=== PATIENT | female | born 1940 | race Caucasian/White ===

== ENCOUNTER → 2018-08-11 08:56 | Outpatient (CLI) | payer MEDICARE, OTHER, SELFPAY ==
--- NOTE | 2018-08-11 | DI.MG.S_ITS ---
BILATERAL DIGITAL SCREENING MAMMOGRAM 3D/2D WITH CAD: 08/11/2018 CLINICAL: Routine screening. Comparison is made to exams dated: 01/18/2015 mammogram - [facility], 09/05/2013 mammogram, and 11/10/2011 mammogram - [facility]. There are scattered fibroglandular elements in both breasts. Current study was also evaluated with a Computer Aided Detection (CAD) system. There is a mole marker on the right breast. No significant masses, calcifications, or other findings are seen in either breast. There has been no significant interval change. IMPRESSION: NEGATIVE There is no mammographic evidence of malignancy. A 1 year screening mammogram is recommended. This exam was interpreted at Station ID: [id number]. NOTE: For mammograms, a report in lay terms will be sent to the patient. Approximately 15% of breast malignancies will not be visualized mammographically. In the management of a palpable breast mass, a negative mammogram must not discourage biopsy of a clinically suspicious lesion. Electronically Signed By: Sanjiv delarosa/alexa:08/11/2018 12:27:19 letter sent: Normal Exam ACR BI-RADS Category 1: Negative [id number]
== END ==
PROVIDERS: PCP Physician Assistant; Visit Provider Physician Assistant
DX: Z12.31 Encounter for screening mammogram for malignant neoplasm of breast (principal)
CPT/HCPCS: 77063; 77067

== ENCOUNTER → 2021-11-11 10:48 | Outpatient (CLI) | payer MEDICARE, OTHER, SELFPAY ==
--- NOTE | 2021-11-11 | DI.MRI.S_ITS ---
PROCEDURE: MR LUMBAR SPINE WO CON INDICATIONS: Sciatica, right side TECHNIQUE: Noncontrast sagittal T1 spin echo and T2 fast echo, sagittal STIR, and T2 fast spin echo through the lumbar spine. In cases with scoliosis, additional coronal T2 fast spin echo may be performed. COMPARISON: None. FINDINGS: Image quality: Excellent. Alignment and Curvature: Convex left thoracolumbar scoliosis present. Transitional anatomy present. There is partial sacralization of the L5 vertebral body, and hypoplastic ribs associated with T12. Bone Marrow: Marrow is of normal overall signal. No acute vertebral body compression fractures. Spinal Cord: Conus medullaris terminates at the L1 level. Visualized cord demonstrates normal signal and size. Paraspinous Soft Tissues: No paravertebral masses. T12-L1: Normal appearance. L1-L2: Disc space narrowing and circumferential disc bulge with hypertrophic facet joints results in mild central stenosis. Mild bilateral foraminal stenosis. L2-L3: Disc space narrowing with circumferential disc bulge and hypertrophic facet joints results in moderate central stenosis. Severe right and moderate left foraminal stenosis L3-L4: Disc space narrowing and circumferential disc bulge combines with hypertrophic facet joints and ligamentum flavum laxity results in moderate central stenosis. Severe right and mild left foraminal stenosis L4-L5: Disc space narrowing with circumferential disc bulge and hypertrophic facet joints results in moderate central stenosis. Severe left and mild right foraminal stenosis L5-S1: Disc space narrowing with circumferential disc bulge present. No central stenosis. No foraminal stenosis IMPRESSION: 1. Multilevel degenerative disc disease and arthropathy results in varying degrees of central and foraminal stenosis including moderate central stenosis at L2-3 , L3-4 and L4-5 2. Transitional anatomy. There is assumed partial sacralization of the L5 vertebral body and hypoplastic ribs associated with T12 Approved by: Dallin Thornton M.D. on 11/11/2021 at 16:35
--- NOTE | 2021-11-11 | DI.RAD.S_ITS ---
PROCEDURE: XR HAND RT MIN 3V INDICATIONS: right thumb pain TECHNIQUE: 3 views of the hand(s) acquired. COMPARISON: None. FINDINGS: Bones: Severe degenerative changes are present throughout the interphalangeal joints, 1st CMC joint, and triscaphe joint of the right hand. Large osteophytes, endplate sclerosis, and subchondral cystic changes are present throughout. A hooked osteophyte is present at the distal aspect of the right 2nd metacarpal. Subchondral cystic changes are also present at the distal ulna. No acute fracture or dislocation. Periarticular erosions are noted at the distal 1st metacarpal Soft tissues: No suspicious soft tissue calcifications. IMPRESSION: 1. No acute fracture or dislocation. If pain persists, followup imaging in 5-7 days is recommended to exclude occult fracture. 2. Severe osteoarthritis as above. Some bony erosions may represent subchondral cystic changes; however erosive arthritis could also be considered in the differential. Dictated by: Prabha Schilling M.D. on 11/11/2021 at 13:33 Approved by: Prabha Schilling M.D. on 11/11/2021 at 13:35
== END ==
PROVIDERS: PCP Student in an Organized Health Care Education/Training Program; Referring Provider Student in an Organized Health Care Education/Training Program; Visit Provider Student in an Organized Health Care Education/Training Program
DX: M47.26 Other spondylosis with radiculopathy, lumbar region (principal); M51.16 Intervertebral disc disorders with radiculopathy, lumbar region; M48.061 Spinal stenosis, lumbar region without neurogenic claudication; M19.041 Primary osteoarthritis, right hand; M18.11 Unilateral primary osteoarthritis of first carpometacarpal joint, right hand; M79.644 Pain in right finger(s); Z13.820 Encounter for screening for osteoporosis; Z78.0 Asymptomatic menopausal state; Z90.710 Acquired absence of both cervix and uterus; Z92.23 Personal history of estrogen therapy
CPT/HCPCS: 72148; 73130; 77080

== ENCOUNTER 2023-09-09 16:15 | Emergency (ER) | payer MEDICARE, SELFPAY ==
[2023-09-09] VITALS (13 sets, daily range): BP systolic 161–221; BP diastolic 76–100; PULSE 67–78; RESP 18–20; TEMP 36.8; O2SAT 94–97; BMI 33.8
--- NOTE | 2023-09-09 16:34 | DI.RAD.S_ITS ---
PROCEDURE: XR CHEST 1V INDICATIONS: Shortness of breath TECHNIQUE: One view of the chest was acquired. COMPARISON: None. FINDINGS: Surgical changes and devices: None. Lungs and pleura: Lungs are clear. No pleural effusions or pneumothorax. Mediastinum: Mediastinal contours appear normal. Heart size is normal. Bones and chest wall: No suspicious bony lesions. Overlying soft tissues appear unremarkable. IMPRESSION: No acute cardiopulmonary abnormality is seen. Dictated by: Wm Nava M.D. on 09/09/2023 at 17:06 Approved by: Wm Nava M.D. on 09/09/2023 at 17:06
[2023-09-09 17:12] LABS: Lactate (Lactic Acid) 1.6 mmol/L (0.7-2.1)
[2023-09-09 17:13] LABS: Alanine Aminotransferase 47 IU/L (<35); Albumin 4.5 g/dL (3.5-5.0); Albumin Globulin Ratio 1.6 (1.0-2.8); Alkaline Phosphatase 49 U/L (38-126); Aspartate Aminotransferase 39 IU/L (14-36); BUN Creatinine Ratio 31.3 (6-22); Bilirubin Total 0.5 mg/dL (0.2-1.3); Blood Urea Nitrogen 21 mg/dL (7-17); Calcium 10.4 mg/dL (8.4-10.2); Carbon Dioxide 25 mmol/L (22-32); Chloride 109 mmol/L (98-107); Creatine Kinase 102 U/L (30-135); Estimated Glomerular Filt Rate > 60 mL/min (>60); Globulin 2.8 g/dL (1.7-4.1); Glucose 118 mg/dL (80-110); HEMOLYSIS 19 (0-50); Potassium 4.6 mmol/L (3.4-5.1); Sodium 140 mmol/L (137-145); Total Protein 7.3 g/dL (6.3-8.2)
[2023-09-09 17:14] LABS: Add Manual Diff / Slide Review NO; Basophils Absolute Auto 0 /uL (0-100); Basophils Percent Auto 0.8 % (0-2); Eosinophils Absolute Auto 100 /uL (0-450); Eosinophils Percent Auto 1.1 % (2-4); Hematocrit 36.8 % (36-46); Lymphocytes Absolute Auto 1000 /uL (1100-4500); Lymphocytes Percent Auto 19.2 % (25-40); Mean Corpuscular HGB Conc 32.7 % (30-36); Mean Corpuscular Hemoglobin 31.1 PG (26-34); Mean Corpuscular Volume 95.3 fL (80-100); Monocytes Absolute Auto 400 /uL (0-900); Monocytes Percent Auto 7.4 % (3-14); Neutrophils Absolute Auto 3700 /uL (1500-7000); Neutrophils Percent Auto 71.5 % (50-75); Platelet Count 220 X10^3/uL (150-400); Red Blood Cell Count 3.86 X10^6/uL (4.0-5.2); Red Cell Distribution Width 13.9 % (11.6-14.8); White Blood Cell Count 5.2 X10^3/uL (4.5-11.0)
[2023-09-09 17:24] LABS: NT-proBNP (BNP-Adult 18+) 62 pg/mL (<450); Troponin I < 0.012 ng/mL (0.01-0.034)
[2023-09-09 18:43] LABS: Prothrombin Time 10.9 SECONDS (9.4-12.5)
--- NOTE | 2023-09-09 19:42 | ED.EXTPRO ---
HPI - Extremity Problem General Chief complaint: Extremity Problem,Nontraumatic Stated complaint: leg swelling, neck pain, sent by [facility] Time Seen by Provider: 09/09/23 19:42 Source: patient Mode of arrival: Ambulatory History of Present Illness HPI Narrative: 82-year-old female complains of left lateral neck discomfort for the last few days, increasing, worse with movement, some tenderness when she pushes on the area, no fall or blunt trauma recalled, no numbness or tingling to the ipsilateral left upper extremity. No history of abnormal clotting, no left arm swelling. No treatments tried. No history of cervical spine surgeries or injections or other interventions. She also has had 2 weeks' duration of bilateral leg swelling, frequently standing, no leg pain with walking or movement. She has not discontinued any medications, nor has she started any new medications. No history of heart failure, kidney failure, liver failure, nephrotic syndrome, when she was directly asked. She has not tried any medications for this problem, has not sought care for this problem. She denies any recent chest pain, trouble breathing. Related Data Home Medications Medication Instructions Recorded Confirmed atorvastatin 20 mg tablet 20 mg PO DAILY 09/01/18 11/17/22 omeprazole 20 mg capsule,delayed 20 mg PO DAILY 09/01/18 11/17/22 release clobetasol 0.05 % topical ointment 1 applictn topical DAILY 11/09/19 11/17/22 cholecalciferol (vitamin D3) 25 25 mcg PO DAILY 05/08/20 11/17/22 mcg (1,000 unit) capsule multivitamin 1 tab PO DAILY 11/17/22 11/17/22 Previous Rx's Medication Instructions Recorded lorazepam 0.5 mg tablet 0.5 mg PO DAILY PRN anxiety #30 09/26/20 tabs escitalopram oxalate 5 mg tablet 5 mg PO DAILY #7 tabs 06/22/23 furosemide 20 mg tablet 20 mg PO DAILY leg swelling 7 days 09/09/23 #1 tab methocarbamol 500 mg tablet 500 mg PO TID #20 tabs 09/09/23 Allergies Allergy/AdvReac Type Severity Reaction Status Date / Time codeine [CODEINE] Allergy Unknown vomit Verified 11/17/22 10:17 Sulfa (Sulfonamide Allergy Unknown rash Verified 11/17/22 10:17 Antibiotics) [SULFA (SULFONAMIDE ANTIBIOTICS)] Review of Systems Constitutional Constitutional: Denies weakness Eyes Eyes: Denies change in vision and Denies irritation ENT Ears, Nose, Mouth, and Throat: Denies otalgia and Reports neck pain Cardiovascular Cardiovascular: Denies dyspnea Respiratory Respiratory: Denies cough and Denies dyspnea Gastrointestinal Gastrointestinal: Denies abdominal pain, Denies diarrhea, Denies nausea and Denies vomiting Musculoskeletal Musculoskeletal: Reports neck pain, Denies numbness and Denies tingling Comments: Left lateral posterior neck pain as per HPI, atraumatic, worse with head movements, and is tender to palpation Integumentary/Breasts Skin/Breast: Denies sores Neurologic Neurologic: Denies numbness, Denies tingling and Denies weakness Patient History Social History Smoking Status: Never smoker Smoking Status: Never smoker Substance Use Type: does not use Exam Initial Vital Signs Initial Vital Signs: Vital Signs Temperature 98.2 F 09/09/23 16:20 Pulse Rate 78 09/09/23 16:20 Respiratory Rate 20 09/09/23 16:20 Blood Pressure 190/99 H 09/09/23 16:20 Pulse Oximetry 96 09/09/23 16:20 Oxygen Delivery Method Room Air 09/09/23 16:20 Const General: cooperative [facility] Other: Atraumatic scalp and face, no swelling to the jaw or submandibular space, no tenderness to anterior neck, some tenderness along left posterior scalene musculature, but not along the superior trapezius, no gross deformity, no limited range of motion to the neck, no posterior midline cervical spine tenderness Eyes General: Yes appearance normal, both eyes and all related structures Chest Chest: normal inspection of the chest Resp Effort & Inspection: normal respiratory effort GI Inspection: normal to inspection, non-distended and obesity Palpation: No tender Other: Deferred Back/Spine/Pelvis Back: normal to inspection Neuro Cranial Nerves: CN's II-XI intact bilaterally Speech: speech normal Motor: strength 5/5 throughout Extrem Other: Bilateral lower edema 1+ pitting above ankles both sides, good DP pulses, warm, good cap refill Psych Appearance: grossly normal Course Orders Ordered: Discontinued Medications Furosemide (Furosemide 40 Mg/4 Ml Vial) 20 mg IV NOW ONE Stop: 09/09/23 22:27 Last Admin: 05/09/24 22:34 Dose: 20 mg Documented By: CECI Methocarbamol (Methocarbamol 500 Mg Tablet) 500 mg PO NOW ONE Stop: 09/09/23 21:23 Last Admin: 09/09/23 21:27 Dose: 500 mg Documented By: TOMAS Vital Signs Vital signs: Vital Signs - 8 hr 09/09/23 16:20 09/09/23 19:20 09/09/23 19:20 Temperature 98.2 F Pulse Rate 78 67 Respiratory Rate 20 Blood Pressure 190/99 H 198/95 H Pulse Oximetry 96 97 Oxygen Delivery Method Room Air 09/09/23 19:22 09/09/23 19:30 09/09/23 19:30 Temperature Pulse Rate 72 70 Respiratory Rate Blood Pressure 221/90 H Pulse Oximetry 97 97 Oxygen Delivery Method 09/09/23 20:00 09/09/23 20:30 09/09/23 20:30 Temperature Pulse Rate 71 77 Respiratory Rate Blood Pressure 203/100 H Pulse Oximetry 96 95 Oxygen Delivery Method 09/09/23 21:00 09/09/23 21:01 09/09/23 21:01 Temperature Pulse Rate 71 73 Respiratory Rate Blood Pressure 178/80 H Pulse Oximetry 94 97 Oxygen Delivery Method MDM - Extremity (Nontraumatic) Lab Data 09/09/23 16:55 09/09/23 16:55 Labs: Lab Results 09/09/23 09/09/23 Range/Units 16:55 18:20 WBC 5.2 (4.5-11.0) X10^3/uL RBC 3.86 L (4.0-5.2) X10^6/uL Hgb 12.0 (12.0-16.0) g/dL Hct 36.8 (36-46) % MCV 95.3 (80-100) fL MCH 31.1 (26-34) PG MCHC 32.7 (30-36) % RDW 13.9 (11.6-14.8) % Plt Count 220 (150-400) X10^3/uL Neut % (Auto) 71.5 (50-75) % Lymph % (Auto) 19.2 L (25-40) % Levy % (Auto) 7.4 (3-14) % Eos % (Auto) 1.1 L (2-4) % Baso % (Auto) 0.8 (0-2) % Neut # (Auto) 3700 (8807-2638) /uL Lymph # (Auto) 1000 L (7462-9456) /uL Levy # (Auto) 400 (0-900) /uL Eos # (Auto) 100 (0-450) /uL Baso # (Auto) 0 (0-100) /uL PT 10.9 (9.4-12.5) SECONDS INR 1.0 (0.9-1.3) Sodium 140 (137-145) mmol/L Potassium 4.6 (3.4-5.1) mmol/L Chloride 109 H (98-107) mmol/L Carbon Dioxide 25 (22-32) mmol/L BUN 21 H (7-17) mg/dL Creatinine 0.67 (0.52-1.04) mg/dL Estimated GFR > 60 (>60) mL/min BUN/Creatinine Ratio 31.3 H (6-22) Glucose 118 H (80-110) mg/dL Lactate 1.6 (0.7-2.1) mmol/L Calcium 10.4 H (8.4-10.2) mg/dL Total Bilirubin 0.5 (0.2-1.3) mg/dL AST 39 H (14-36) IU/L ALT 47 H (<35) IU/L Alkaline Phosphatase 49 (38-126) U/L Total Creatine Kinase 102 (30-135) U/L Troponin I < 0.012 (0.01-0.034) ng/mL NT-Pro-B Natriuret Pep 62 (<450) pg/mL Total Protein 7.3 (6.3-8.2) g/dL Albumin 4.5 (3.5-5.0) g/dL Globulin 2.8 (1.7-4.1) g/dL Albumin/Globulin Ratio 1.6 (1.0-2.8) MDM Narrative Medical decision making narrative: Patient with left lateral neck tenderness scalene musculature, none midline, no neuro deficits, we discussed imaging, defer for now, trial of p.o. Robaxin, 1st dose now prescription for next few days, follow up with PCP. Regarding her lower extremity edema, lab work was not suggestive of CHF, or renal failure, or nephrotic syndrome, or liver failure. Likely this represents peripheral edema. IV Lasix dose, PO Lasix for the next few days, consider use of Jelani hose compression stockings. Follow up with PCP for further workup as an outpatient for now. Improved symptoms. Stable, home with daughter Critical Care Time Critical Care Time Critical Care Time: Yes Total Critical Care Time: 35 Attestation: The high probability of a clinically significant, sudden or life threatening deterioration of the [] system(s) required my full and direct attention, intervention and personal management. The aggregate critical care time was [] minutes. This time is in addition to time spent performing reported procedures but includes the following: [x] Data Review and interpretation [x] Patient assessment and monitoring of vital signs [x] Documentation [x] Medication orders and management Discharge Plan Departure Patient Disposition: Home Clinical Impression: Cervical muscle strain, Bilateral lower extremity edema Activity Restrictions/Additional Instructions: Left-sided neck pain with tenderness to palpation, no injury, no neurological deficits, we discussed imaging, hold for now, trial of muscle relaxant medication Robaxin/methocarbamol, 1st dose in the emergency department, prescription to take home for the next few days as needed. Also lower extremity edema, lab testing did not show evidence for heart failure, kidney failure, liver failure, this is probably peripheral edema, IV Lasix dose to be given, Lasix to be taken for the next few days. Follow up with the regular doctor for further workup if needed as an outpatient. Return to this/nearest emergency department for any change worsening symptoms or any concerns prior Prescriptions: New furosemide 20 mg tablet 20 mg PO DAILY 7 Days Qty: 1 0RF methocarbamol 500 mg tablet 500 mg PO TID Qty: 20 0RF No Action cholecalciferol (vitamin D3) 25 mcg (1,000 unit) capsule 25 mcg PO DAILY lorazepam 0.5 mg tablet 0.5 mg PO DAILY PRN (Reason: anxiety) Qty: 30 0RF multivitamin Tablet 1 tab PO DAILY clobetasol 0.05 % ointment 1 applictn TOP DAILY escitalopram oxalate 5 mg tablet 5 mg PO DAILY Qty: 7 0RF omeprazole 20 mg capsule,delayed release(DR/EC) 20 mg PO DAILY atorvastatin 20 mg tablet 20 mg PO DAILY Referrals: Tena Durant PA-C [Primary Care Provider] - Stand Alone Forms: Patient Portal/API
[2023-09-09] MEDS: methocarbamoL 500 MG TABLET PO (21:27)
[2023-09-09] MEDS: FUROSEMIDE 40 MG/4 ML VIAL 20 MG IV (22:34)
== END 2023-09-09 23:02 | disposition home or self-care (01) ==
PROVIDERS: Emergency Medicine; Emergency Provider Emergency Medicine; Family Provider Student in an Organized Health Care Education/Training Program; PCP Student in an Organized Health Care Education/Training Program
DX: S16.1XXA Strain of muscle, fascia and tendon at neck level, initial encounter (principal); R60.0 Localized edema
CPT/HCPCS: 36415; 71045; 80053; 82550; 83605; 83880; 84484; 85025; 85610; 93005; 93010; 96374; 99284; J1940

== ENCOUNTER → 2023-10-31 10:42 | Outpatient (CLI) | payer MEDICARE, SELFPAY ==
--- NOTE | 2023-10-31 10:44 | DI.RAD.S_ITS ---
PROCEDURE: XR LUMBAR SPINE MIN 4V INDICATIONS: Low back pain TECHNIQUE: 5 views of the lumbar spine acquired, including flexion and extension views. COMPARISON: None. FINDINGS: Bones: 5 nonrib-bearing vertebrae are present. Levo scoliotic curvature. Diffusely decreased osseous mineralization. There is multilevel facet arthropathy, worse at L4-5 and L5-S1. Multilevel disc height loss with degenerative endplate changes and spurring is present. No vertebral body compression fractures. No suspicious bony lesions. Soft tissues: Overlying bowel gas pattern is normal. No suspicious soft tissue calcifications. Atherosclerotic vascular calcifications. Flexion/extension: There is limited range of motion, with preserved alignment. IMPRESSION: Multilevel degenerative changes of the lumbar spine with limited range of motion. No vertebral body compression deformities. Dictated by: Jez Villa M.D. on 10/31/2023 at 10:03 Approved by: Jez Villa M.D. on 10/31/2023 at 10:08
== END ==
LOC: RAD 10:43
PROVIDERS: Family Provider Student in an Organized Health Care Education/Training Program; PCP Student in an Organized Health Care Education/Training Program; Referring Provider Physician Assistant Surgical; Visit Provider Physician Assistant Surgical
DX: M47.816 Spondylosis without myelopathy or radiculopathy, lumbar region (principal); M47.817 Spondylosis without myelopathy or radiculopathy, lumbosacral region; M54.50 Low back pain, unspecified
CPT/HCPCS: 72110

== ENCOUNTER 2023-11-09 02:27 | Emergency (ER) | payer MEDICARE, SELFPAY ==
[2023-11-09 02:38] VITALS: BP 215/100; PULSE 82; RESP 18; TEMP 36.8; O2SAT 97; BMI 34.7
--- NOTE | 2023-11-09 02:44 | ED_ITS ---
HPI - Back Pain/Injury General Chief Complaint: Back Pain/Injury Stated Complaint: back pain Time Seen by Provider: 11/09/23 02:37 Source: patient History of Present Illness HPI Narrative: 83-year-old female says that she was bending to the side shoveling about 2 weeks ago, with left-sided back pain, was seen in clinic, had x-rays taken which she believes were okay, given prescription for 3 days' duration prednisone, and prescription for methocarbamol muscle relaxant, still having pain, now radiating to the left side, left flank, left anterior lower quadrant abdomen. She denies history of kidney stones. She has no pain on urination. No fevers or chills. No nausea or vomiting. No grossly bloody urine. No new injury or fall. She does not take blood thinner medications. No diarrhea, no black or red stools. No skin rash or vesicles. Related Data Home Medications Medication Instructions Recorded Confirmed atorvastatin 20 mg tablet 20 mg PO DAILY 09/01/18 11/17/22 omeprazole 20 mg capsule,delayed 20 mg PO DAILY 09/01/18 11/17/22 release clobetasol 0.05 % topical ointment 1 applictn topical DAILY 11/09/19 11/17/22 cholecalciferol (vitamin D3) 25 25 mcg PO DAILY 05/08/20 11/17/22 mcg (1,000 unit) capsule multivitamin 1 tab PO DAILY 11/17/22 11/17/22 Previous Rx's Medication Instructions Recorded lorazepam 0.5 mg tablet 0.5 mg PO DAILY PRN anxiety #30 09/26/20 tabs escitalopram oxalate 5 mg tablet 5 mg PO DAILY #7 tabs 06/22/23 methocarbamol 500 mg tablet 500 mg PO TID #20 tabs 09/09/23 Allergies Allergy/AdvReac Type Severity Reaction Status Date / Time codeine [CODEINE] Allergy Unknown vomit Verified 10/31/23 10:17 Sulfa (Sulfonamide Allergy Unknown rash Verified 10/31/23 10:17 Antibiotics) [SULFA (SULFONAMIDE ANTIBIOTICS)] Review of Systems Review of Systems Narrative: per HPI Patient History Social History Smoking Status: Never smoker Smoking Status: Never smoker Substance Use Type: does not use Exam Narrative Exam Narrative: GENERAL: Well-developed patient, in mild distress. HEAD: Atraumatic. Normocephalic. EYES: Pupils equal round and reactive. Extraocular motions intact. No scleral icterus. No injection or drainage. ENT: Nose without bleeding, purulent drainage. Throat without erythema, tonsillar hypertrophy or exudate. Airway patent. NECK: Trachea midline. Non tender CARDIOVASCULAR: Regular rate and rhythm without murmurs, gallops, or rubs. RESPIRATORY: Clear to auscultation. Breath sounds equal bilaterally. No wheezes, rales, or rhonchi. GASTROINTESTINAL: Abdomen soft, mild LLQ abdominal tenderness, no guarding, no rebound tenderness, normal bowel tones, nondistended. No obvious ventral hernia. No obvious fluid wave EXTREMITIES: No edema or joint tenderness. BACK: Nontender without deformity or crepitance. No flank tenderness. No skin rash/vesicles NEURO: AOx3. SKIN: No rash or erythema of visible areas Initial Vital Signs Initial Vital Signs: Vital Signs Temperature 98.3 F 11/09/23 02:38 Pulse Rate 82 11/09/23 02:38 Respiratory Rate 18 11/09/23 02:38 Blood Pressure 215/100 H 11/09/23 02:38 Pulse Oximetry 97 11/09/23 02:38 Oxygen Delivery Method Room Air 11/09/23 02:38 Course Orders Ordered: ED Orders 11/09/23 03:03 CT abdomen pelvis wo con Stat 11/09/23 04:00 Ammonia (NH3) Stat Complete Blood Count AUTO DIFF Stat Comprehensive Metabolic Panel Stat Lipase Stat Discontinued Medications Hydromorphone HCl (Hydromorphone 0.5 Mg Inj) 0.5 mg IV NOW ONE Stop: 11/09/23 03:03 Last Admin: 11/09/23 04:03 Dose: 0.5 mg Documented By: Tramadol HCl (Tramadol 50 Mg Prepack) 1 bottle MISC DIRECTED ONE Stop: 11/09/23 04:31 Last Admin: 11/09/23 04:35 Dose: 1 bottle Documented By: PIYUSH Vital Signs Vital signs: Vital Signs - 8 hr 11/09/23 02:38 11/09/23 03:00 11/09/23 03:22 Temperature 98.3 F Pulse Rate 82 87 Respiratory Rate 18 Blood Pressure 215/100 H Pulse Oximetry 97 95 96 Oxygen Delivery Method Room Air Room Air Room Air 11/09/23 04:16 Temperature Pulse Rate Respiratory Rate Blood Pressure 167/79 H Pulse Oximetry Oxygen Delivery Method MDM - Back Pain/Injury Lab Data Attestation: I reviewed the patient's lab results. 11/09/23 04:00 11/09/23 04:00 Labs: Lab Results 11/09/23 Range/Units 04:00 WBC 6.6 (4.5-11.0) X10^3/uL RBC 4.08 (4.0-5.2) X10^6/uL Hgb 12.6 (12.0-16.0) g/dL Hct 38.0 (36-46) % MCV 93.1 (80-100) fL MCH 30.7 (26-34) PG MCHC 33.0 (30-36) % RDW 15.6 H (11.6-14.8) % Plt Count 223 (150-400) X10^3/uL Neut % (Auto) 42.0 L (50-75) % Lymph % (Auto) 45.0 H (25-40) % [place] % (Auto) 9.4 (3-14) % Eos % (Auto) 2.9 (2-4) % Baso % (Auto) 0.7 (0-2) % Neut # (Auto) 2800 (7251-8570) /uL Lymph # (Auto) 3000 (2502-9523) /uL [place] # (Auto) 600 (0-900) /uL Eos # (Auto) 200 (0-450) /uL Baso # (Auto) 0 (0-100) /uL Sodium 140 (137-145) mmol/L Potassium 3.4 (3.4-5.1) mmol/L Chloride 106 (98-107) mmol/L Carbon Dioxide 28 (22-32) mmol/L BUN 19 H (7-17) mg/dL Creatinine 0.69 (0.52-1.04) mg/dL Estimated GFR > 60 (>60) mL/min BUN/Creatinine Ratio 27.5 H (6-22) Glucose 95 (80-110) mg/dL Calcium 9.8 (8.4-10.2) mg/dL Total Bilirubin 0.6 (0.2-1.3) mg/dL AST 33 (14-36) IU/L ALT 36 H (<35) IU/L Alkaline Phosphatase 44 (38-126) U/L Ammonia < 9 L (9-30) umol/L Total Protein 7.5 (6.3-8.2) g/dL Albumin 4.4 (3.5-5.0) g/dL Globulin 3.1 (1.7-4.1) g/dL Albumin/Globulin Ratio 1.4 (1.0-2.8) Lipase 54 (23-300) U/L MDM Narrative Medical decision making narrative: 83-year-old female currently taking Robaxin for back pain, worsening, recent course of prednisone days ago, somewhat left-sided now, no skin rash or vesicles on exam, some tenderness left lower quadrant. DDX consider radicular pain, muscle strain, ureteral stone, UTI, diverticulitis, colitis, bowel obstruction, perforated viscus, hernia, preherpetic neuralgia, other. Labs show white blood cell count non elevated. CT abdomen and pelvis noncontrast study ordered. IV Dilaudid CT abdomen and pelvis without contrast. Impressions: ?1 mm nonobstructive left renal stone. No evidence of hydronephrosis or perinephric fat stranding. Anteromedial rotation of the cecum (cecum is located in the right upper quadrant) without evidence of sacral obstruction or surrounding inflammatory changes.? See teleradiology report It is possible that a very small stone protocol could be passing (or recently passed) through the left ureter, though could be unrelated incidental finding, still could consider preherpetic neuralgia, radiculopathy, muscular cause of symptoms. Home pack tramadol. Urine strainer for discharge. Follow up this Wednesday with regular provider as scheduled. Return precautions discussed. Improved, home with family. Critical Care Time Critical Care Time Critical Care Time: Yes Total Critical Care Time: 31 Attestation: The high probability of a clinically significant, sudden or life threatening deterioration of the [abdominopelvic, musculoskeletal, genitourinary] system(s) required my full and direct attention, intervention and personal management. The aggregate critical care time was [31] minutes. This time is in addition to time spent performing reported procedures but includes the following: [x] Data Review and interpretation [x] Patient assessment and monitoring of vital signs [x] Documentation [x] Medication orders and management Discharge Plan Departure Patient Disposition: Home Clinical Impression: Back pain, Kidney stone Instructions: DI for Kidney Stones Activity Restrictions/Additional Instructions: Low back pain, recent x-rays from recent clinic visit, oral prednisone steroid course and Robaxin muscle relaxant medications not helping, now with left flank and left lower quadrant discomfort. No known history of kidney stones. No fever on triage. Some mild tenderness to left lower quadrant on exam. No skin changes or vesicles to suggest herpes zoster (shingles) rash at this time, although it could be early in the course in pre-herpetic rash pain could be present. CT imaging done tonight, shows 1 mm nonobstructing stone in the left kidney on the side where you are hurting. There was no description of any stone currently in the ureter on the left side, although it is possible that a very small <1mm diameter stone particle could transit that space into the bladder, causing left flank and back and abdominal discomfort. Consider straining your urine for passage of any sediment or stone that could be sent for testing. It is still possible to have discomfort from musculoskeletal spinal cause, radiculopathy, compression of nerves, though bony windows were not exciting on reading tonight. You happened to also have right upper quadrant related cecum, the portion of your right colon, does usually in the right lower quadrant, this is not a cause of your current discomfort but happens to be an anatomic variant, if you need to know that for future. Take your Robaxin muscle relaxant medication as planned, consider ibuprofen use as well, drink plenty of fluids. Recheck symptoms with your regular doctor in the next couple of days. Watch for development of any redness or vesicles of the skin in that flank area that would be consistent with zoster/shingles rash. Return to this/nearest emergency department for any change worsening symptoms or any concerns prior Prescriptions: No Action cholecalciferol (vitamin D3) 25 mcg (1,000 unit) capsule 25 mcg PO DAILY lorazepam 0.5 mg tablet 0.5 mg PO DAILY PRN (Reason: anxiety) Qty: 30 0RF multivitamin Tablet 1 tab PO DAILY clobetasol 0.05 % ointment 1 applictn TOP DAILY escitalopram oxalate 5 mg tablet 5 mg PO DAILY Qty: 7 0RF methocarbamol 500 mg tablet 500 mg PO TID Qty: 20 0RF omeprazole 20 mg capsule,delayed release(DR/EC) 20 mg PO DAILY atorvastatin 20 mg tablet 20 mg PO DAILY Referrals: Tena Durant, [facility] [Primary Care Provider] - Stand Alone Forms: Patient Portal/API
[2023-11-09 03:00] VITALS: PULSE 87; O2SAT 95
--- NOTE | 2023-11-09 03:03 | DI.CT.S_ITS ---
PROCEDURE: CT ABDOMEN PELVIS WO CON INDICATIONS: L flank pain, LLQ pain TECHNIQUE: Axial sections were acquired from the lung bases to the pubic symphysis. Coronal and sagittal reformats were performed. For radiation dose reduction, the following was used: automated exposure control, adjustment of mA and/or kV according to patient size. COMPARISON: None. FINDINGS: Image quality: Diagnostic. Lower Chest: No significant findings. URINARY: Right Kidney: No stones or hydronephrosis. Right Ureter: No hydroureter. No definite ureteral stone. 3 mm likely phleboliths in the region of distal right ureter /UVJ is seen series 2, image 73. Left Kidney: 2 mm nonobstructing stone in midpole left kidney. No hydronephrosis. Left Ureter: No hydroureter. Bladder: Normal wall thickness. No stones. ABDOMEN: Liver: No contour-deforming solid mass. Multiple well-circumscribed hypodense areas scattered throughout liver parenchyma is seen and measures up to 3.9 x 3.1 cm in size and 7 Hounsfield unit in density . Gallbladder: No radiopaque gallstones or wall thickening. Biliary ducts: No biliary dilation. Pancreas: No ductal dilation. Spleen: Size is within normal limits. Adrenal Glands: No adrenal nodules. Stomach and Bowel: There is no bowel obstruction. No abnormal bowel wall thickening or mesenteric fat stranding. Mild fecal stasis in the colon is seen. Incidentally noted of anterior medial rotation of the cecum without cecal obstruction or surrounding inflammatory changes. Peritoneum: No abnormal intraperitoneal fluid. No free air. Ventral Wall: No hernia. Abdominal Nodes: No enlarged retroperitoneal or mesenteric lymph nodes. Vessels: Aorta and inferior vena cava are normal in size. PELVIS: Pelvic Organs: Unremarkable. Pelvic Nodes: Unremarkable. Miscellaneous: No inguinal hernias are seen. Bones: No aggressive appearing bony lesions. No acute vertebral body compression fracture. IMPRESSION: 1. No obstructing stones or hydronephrosis. 2 mm nonobstructing stone in left kidney. Likely phleboliths in right lower pelvis near right UVJ as above. 2. No bowel obstruction or abnormal bowel wall thickening. Anterior medial rotation of cecum without obstruction or surrounding inflammatory changes and likely represent congenital process. No significant discrepancies from preliminary reading. Dictated by: Shiva Park M.D. on 11/09/2023 at 8:43 Approved by: Shiva Park M.D. on 11/09/2023 at 8:50
[2023-11-09 03:22] VITALS: O2SAT 96
[2023-11-09] MEDS: HYDROMORPHONE 0.5 MG INJ IV (04:03)
[2023-11-09 04:08] LABS: Add Manual Diff / Slide Review NO; Basophils Absolute Auto 0 /uL (0-100); Basophils Percent Auto 0.7 % (0-2); Eosinophils Absolute Auto 200 /uL (0-450); Eosinophils Percent Auto 2.9 % (2-4); Hemoglobin 12.6 g/dL (12.0-16.0); Lymphocytes Absolute Auto 3000 /uL (1100-4500); Mean Corpuscular Hemoglobin 30.7 PG (26-34); Mean Corpuscular Volume 93.1 fL (80-100); Monocytes Absolute Auto 600 /uL (0-900); Monocytes Percent Auto 9.4 % (3-14); Neutrophils Absolute Auto 2800 /uL (1500-7000); Platelet Count 223 X10^3/uL (150-400); Red Blood Cell Count 4.08 X10^6/uL (4.0-5.2); Red Cell Distribution Width 15.6 % (11.6-14.8); White Blood Cell Count 6.6 X10^3/uL (4.5-11.0)
[2023-11-09 04:16] VITALS: BP 167/79
[2023-11-09 04:25] LABS: Ammonia (NH3) < 9 umol/L (9-30)
[2023-11-09 04:26] LABS: Alanine Aminotransferase 36 IU/L (<35); Albumin 4.4 g/dL (3.5-5.0); Albumin Globulin Ratio 1.4 (1.0-2.8); Alkaline Phosphatase 44 U/L (38-126); Aspartate Aminotransferase 33 IU/L (14-36); BUN Creatinine Ratio 27.5 (6-22); Bilirubin Total 0.6 mg/dL (0.2-1.3); Blood Urea Nitrogen 19 mg/dL (7-17); Calcium 9.8 mg/dL (8.4-10.2); Carbon Dioxide 28 mmol/L (22-32); Chloride 106 mmol/L (98-107); Estimated Glomerular Filt Rate > 60 mL/min (>60); Globulin 3.1 g/dL (1.7-4.1); Glucose 95 mg/dL (80-110); HEMOLYSIS 16 (0-50); Lipase 54 U/L (23-300); Potassium 3.4 mmol/L (3.4-5.1); Sodium 140 mmol/L (137-145); Total Protein 7.5 g/dL (6.3-8.2)
[2023-11-09] MEDS: TRAMADOL 50 MG PREPACK 1 BOTTLE MISC (04:35)
== END 2023-11-09 04:45 | disposition home or self-care (01) ==
PROVIDERS: Emergency Provider Emergency Medicine; Family Provider Student in an Organized Health Care Education/Training Program; PCP Student in an Organized Health Care Education/Training Program
DX: N20.0 Calculus of kidney (principal)
CPT/HCPCS: 36415; 74176; 80053; 82140; 83690; 85025; 96374; 99284; J1170

== ENCOUNTER 2023-11-30 16:03 | Emergency (ER) | payer MEDICARE, SELFPAY ==
[2023-11-30] VITALS (7 sets, daily range): BP systolic 139–152; BP diastolic 67–83; PULSE 84–97; RESP 18–21; TEMP 36.2; O2SAT 94–99; BMI 32.9
[2023-11-30 16:35] LABS: Add Manual Diff / Slide Review NO; Basophils Absolute Auto 100 /uL (0-100); Basophils Percent Auto 1.1 % (0-2); Eosinophils Absolute Auto 200 /uL (0-450); Eosinophils Percent Auto 4.3 % (2-4); Hematocrit 37.2 % (36-46); Hemoglobin 12.2 g/dL (12.0-16.0); Lymphocytes Absolute Auto 1300 /uL (1100-4500); Lymphocytes Percent Auto 26.1 % (25-40); Mean Corpuscular HGB Conc 32.8 % (30-36); Mean Corpuscular Hemoglobin 31.3 PG (26-34); Mean Corpuscular Volume 95.5 fL (80-100); Monocytes Absolute Auto 500 /uL (0-900); Monocytes Percent Auto 10.2 % (3-14); Neutrophils Absolute Auto 3000 /uL (1500-7000); Neutrophils Percent Auto 58.3 % (50-75); Platelet Count 235 X10^3/uL (150-400); Red Blood Cell Count 3.89 X10^6/uL (4.0-5.2); Red Cell Distribution Width 16.3 % (11.6-14.8); White Blood Cell Count 5.2 X10^3/uL (4.5-11.0)
[2023-11-30 16:48] LABS: Alanine Aminotransferase 29 IU/L (<35); Albumin 4.4 g/dL (3.5-5.0); Albumin Globulin Ratio 1.4 (1.0-2.8); Alkaline Phosphatase 44 U/L (38-126); Aspartate Aminotransferase 36 IU/L (14-36); BUN Creatinine Ratio 16.3 (6-22); Bilirubin Total 0.7 mg/dL (0.2-1.3); Blood Urea Nitrogen 13 mg/dL (7-17); Calcium 10.4 mg/dL (8.4-10.2); Carbon Dioxide 25 mmol/L (22-32); Chloride 109 mmol/L (98-107); Estimated Glomerular Filt Rate > 60 mL/min (>60); Globulin 3.2 g/dL (1.7-4.1); Glucose 104 mg/dL (80-110); HEMOLYSIS 15 (0-50); Lipase 63 U/L (23-300); Potassium 4.1 mmol/L (3.4-5.1); Sodium 140 mmol/L (137-145); Total Protein 7.6 g/dL (6.3-8.2)
--- NOTE | 2023-11-30 21:08 | ED_ITS ---
HPI - Abdominal Pain General Chief Complaint: Abdominal Pain Stated Complaint: poss kidney stone/hasn't passed/ABD Pain Time Seen by Provider: 11/30/23 19:49 Source: patient Mode of arrival: Ambulatory History of Present Illness HPI narrative: 83-year-old female presents for left-sided abdominal pain, possible on passed kidney stone. Patient states that approximately 1 month ago she was in the emergency department for left-sided pain and was diagnosed with a kidney stone. She was discharged with Flomax and told to follow up with Urology. Patient states that the pain resolved and show she never followed up with Urology. For the last 2-3 days she was had recurrence of pain that feels like the kidney stone. Related Data Home Medications Medication Instructions Recorded Confirmed atorvastatin 20 mg tablet 20 mg PO DAILY 09/01/18 11/17/22 omeprazole 20 mg capsule,delayed 20 mg PO DAILY 09/01/18 11/17/22 release clobetasol 0.05 % topical ointment 1 applictn topical DAILY 11/09/19 11/17/22 cholecalciferol (vitamin D3) 25 25 mcg PO DAILY 05/08/20 11/17/22 mcg (1,000 unit) capsule multivitamin 1 tab PO DAILY 11/17/22 11/17/22 Previous Rx's Medication Instructions Recorded lorazepam 0.5 mg tablet 0.5 mg PO DAILY PRN anxiety #30 09/26/20 tabs escitalopram oxalate 5 mg tablet 5 mg PO DAILY #7 tabs 06/22/23 methocarbamol 500 mg tablet 500 mg PO TID #20 tabs 09/09/23 Allergies Allergy/AdvReac Type Severity Reaction Status Date / Time codeine [CODEINE] Allergy Unknown vomit Verified 10/31/23 10:17 Sulfa (Sulfonamide Allergy Unknown rash Verified 10/31/23 10:17 Antibiotics) [SULFA (SULFONAMIDE ANTIBIOTICS)] Patient History Social History Smoking Status: Never smoker Smoking Status: Never smoker Substance Use Type: does not use Exam Initial Vital Signs Initial Vital Signs: Vital Signs Temperature 97.2 F L 11/30/23 16:07 Pulse Rate 93 H 11/30/23 16:07 Respiratory Rate 18 11/30/23 16:07 Blood Pressure 152/83 H 11/30/23 16:07 Pulse Oximetry 96 11/30/23 16:07 Oxygen Delivery Method Room Air 11/30/23 16:07 Const: Awake, alert, no acute distress, nontoxic appearing Cardiac: regular rate, regular rhythm RESP: unlabored, clear bilaterally, no wheezing GI: Soft, tenderness to deep palpation in the left lower quadrant without rebound or guarding Skin: Warm, Dry, intact, no rashes Neuro: AO x3, CN II-XII grossly intact, moves all extremities Course Orders Ordered: Discontinued Medications Ketorolac Tromethamine (Ketorolac 30 Mg/Ml Vial) 15 mg IV NOW ONE Stop: 11/30/23 21:10 Last Admin: 11/30/23 21:15 Dose: 15 mg Documented By: MAURICE Ondansetron HCl (Ondansetron 4 Mg/2 Ml Inj) 4 mg IV NOW PRN PRN Reason: Nausea And Vomiting Ondansetron HCl (Ondansetron 4 Mg Odt) 4 mg PO NOW PRN PRN Reason: Nausea And Vomiting Vital Signs Vital signs: Vital Signs - 8 hr 11/30/23 16:07 11/30/23 20:05 11/30/23 20:05 Temperature 97.2 F L Pulse Rate 93 H 88 Respiratory Rate 18 Blood Pressure 152/83 H 141/68 H Pulse Oximetry 96 99 Oxygen Delivery Method Room Air 11/30/23 20:11 11/30/23 20:11 11/30/23 20:30 Temperature Pulse Rate 87 84 Respiratory Rate 21 Blood Pressure 139/72 Pulse Oximetry 97 94 Oxygen Delivery Method 11/30/23 20:30 11/30/23 21:00 11/30/23 21:00 Temperature Pulse Rate 88 Respiratory Rate 20 Blood Pressure 143/68 H 148/67 H Pulse Oximetry 95 Oxygen Delivery Method Room Air 11/30/23 21:30 11/30/23 22:00 Temperature Pulse Rate 97 H 94 H Respiratory Rate Blood Pressure Pulse Oximetry 96 96 Oxygen Delivery Method Room Air MDM - Abdominal Pain Differential Diagnosis Differential diagnosis: Likely abdominal pain, calculus of kidney and constipation Lab Data 11/30/23 16:25 11/30/23 16:25 Labs: Lab Results 11/30/23 Range/Units 16:25 WBC 5.2 (4.5-11.0) X10^3/uL RBC 3.89 L (4.0-5.2) X10^6/uL Hgb 12.2 (12.0-16.0) g/dL Hct 37.2 (36-46) % MCV 95.5 (80-100) fL MCH 31.3 (26-34) PG MCHC 32.8 (30-36) % RDW 16.3 H (11.6-14.8) % Plt Count 235 (150-400) X10^3/uL Neut % (Auto) 58.3 (50-75) % Lymph % (Auto) 26.1 (25-40) % [place] % (Auto) 10.2 (3-14) % Eos % (Auto) 4.3 H (2-4) % Baso % (Auto) 1.1 (0-2) % Neut # (Auto) 3000 (0403-9603) /uL Lymph # (Auto) 1300 (7079-4989) /uL [place] # (Auto) 500 (0-900) /uL Eos # (Auto) 200 (0-450) /uL Baso # (Auto) 100 (0-100) /uL Sodium 140 (137-145) mmol/L Potassium 4.1 (3.4-5.1) mmol/L Chloride 109 H (98-107) mmol/L Carbon Dioxide 25 (22-32) mmol/L BUN 13 (7-17) mg/dL Creatinine 0.80 (0.52-1.04) mg/dL Estimated GFR > 60 (>60) mL/min BUN/Creatinine Ratio 16.3 (6-22) Glucose 104 (80-110) mg/dL Calcium 10.4 H (8.4-10.2) mg/dL Total Bilirubin 0.7 (0.2-1.3) mg/dL AST 36 (14-36) IU/L ALT 29 (<35) IU/L Alkaline Phosphatase 44 (38-126) U/L Total Protein 7.6 (6.3-8.2) g/dL Albumin 4.4 (3.5-5.0) g/dL Globulin 3.2 (1.7-4.1) g/dL Albumin/Globulin Ratio 1.4 (1.0-2.8) Lipase 63 (23-300) U/L Point of care testing: Urine Dip Bedside Urine Glucose Negative Bedside Urine Bilirubin - Negative Bedside Urine Ketone +/- 5 Urine Specific [place] 1.010 Bedside Urine Occult Blood - Negative Bedside Urine pH 6.0 Bedside Urine Protein - Negative Bedside Urine Leukocytes - Negative Esterase Imaging Data CT scan - abdomen/pelvis: Radiologist's Impression: PROCEDURE: CT ABDOMEN PELVIS WO CON INDICATIONS: LLQ ABD PAIN, RECENT STONE, PAIN DIFFERENT TECHNIQUE: Axial sections were acquired from the lung bases to the pubic symphysis. Coronal and sagittal reformats were performed. For radiation dose reduction, the following was used: automated exposure control, adjustment of mA and/or kV according to patient size. COMPARISON: [facility], CT, CT ABDOMEN PELVIS WO CON, 11/09/2023, 3:10. FINDINGS: Image quality: Diagnostic. Lower Chest: No significant findings. URINARY: Right Kidney: No stones or hydronephrosis. Right Ureter: No hydroureter. Left Kidney: Non-obstructing 2 mm calculus at the interpolar region. No hydronephrosis. Left Ureter: No hydroureter. Bladder: Normal wall thickness. No stones. ABDOMEN: Liver: No contour-deforming solid mass. Stable buttocks cysts. Gallbladder: No radiopaque gallstones or wall thickening. Biliary ducts: No biliary dilation. Pancreas: No ductal dilation. Spleen: Size is within normal limits. Adrenal Glands: No adrenal nodules. Stomach and Bowel: A few diverticula are seen in the colon without signs of acute diverticulitis. Mobile cecum is noted. Appendix is not definitely visualized. Small bowel loops and stomach are unremarkable apart from a small hiatal hernia. Peritoneum: No abnormal intraperitoneal fluid. No free air. Ventral Wall: Small fat containing periumbilical hernia. Abdominal Nodes: No enlarged retroperitoneal or mesenteric lymph nodes. Vessels: Aorta and inferior vena cava are normal in size. PELVIS: Pelvic Organs: Unremarkable. Pelvic Nodes: Unremarkable. Miscellaneous: No inguinal hernias are seen. Bones: Multilevel degenerative changes are seen in the spine. No aggressive osseous lesion. IMPRESSION: 1. No acute abnormality identified in the abdomen or pelvis. 2. Non-obstructing 2 mm left renal calculus. No hydronephrosis. 3. Colonic diverticulosis without signs of acute diverticulitis. 4. Small hiatal hernia. Approved by: Yonatan Barlow M.D. on 11/30/2023 at 22:11 MDM Narrative Medical decision making narrative: Well-appearing patient with left-sided flank and abdominal pain that feels similar to when she was diagnosed with a stone 1 month prior. Patient was concerned that the stone has not passed. Physical exam is fairly benign, she has left-sided tenderness to deep palpation, no rebound or guarding, no CVA tenderness bilaterally. Laboratory work and imaging obtained. Laboratory work reviewed, no significant change from prior, kidney function is stable, liver enzymes unchanged. CT shows 2mm intrarenal stone, hwoever since this is intrarenal I doubt this is source of pain. POC UA without signs of infection. Discharge Plan Departure Patient Disposition: Home Clinical Impression: Left sided abdominal pain, Kidney stone Instructions: DI for Kidney Stones Activity Restrictions/Additional Instructions: Your laboratory work and imaging today is reassuring. Your CT today showed that you continue to have a 2mm stone inside of your kidney, however this is unlikely to be causing your pain. I do not know the cause of your symptoms. Follow up with your primary care doctor and Urology if you continue to experience symptoms. Prescriptions: No Action cholecalciferol (vitamin D3) 25 mcg (1,000 unit) capsule 25 mcg PO DAILY lorazepam 0.5 mg tablet 0.5 mg PO DAILY PRN (Reason: anxiety) Qty: 30 0RF multivitamin Tablet 1 tab PO DAILY clobetasol 0.05 % ointment 1 applictn TOP DAILY escitalopram oxalate 5 mg tablet 5 mg PO DAILY Qty: 7 0RF methocarbamol 500 mg tablet 500 mg PO TID Qty: 20 0RF omeprazole 20 mg capsule,delayed release(DR/EC) 20 mg PO DAILY atorvastatin 20 mg tablet 20 mg PO DAILY Referrals: Tena Durant PA-C [Primary Care Provider] - Stand Alone Forms: Patient Portal/API
[2023-11-30] MEDS: KETOROLAC 30 MG/ML VIAL 15 MG IV (21:15)
== END 2023-11-30 23:00 | disposition home or self-care (01) ==
PROVIDERS: Emergency Medicine; Emergency Provider Emergency Medicine; Family Provider Student in an Organized Health Care Education/Training Program; PCP Student in an Organized Health Care Education/Training Program
DX: N20.0 Calculus of kidney (principal); R10.9 Unspecified abdominal pain; Z87.442 Personal history of urinary calculi
CPT/HCPCS: 74176; 80053; 81003; 83690; 85025; 96374; 99284; J1885

== ENCOUNTER → 2023-12-17 08:19 | Outpatient (CLI) | payer MEDICARE, SELFPAY ==
--- NOTE | 2023-12-17 08:21 | DI.MRI.S_ITS ---
PROCEDURE: MR ABDOMEN WO/W CON INDICATIONS: ABDOMINAL PAIN TECHNIQUE: Coronal HASTE, axial 2D FLASH in- and [id number]; axial breath-hold T2 FSE. Dynamic axial VIBE during the administration of contrast; post-contrast coronal VIBE or 2D FLASH with fat saturation from the hepatic dome to the iliac crests. Optional diffusion weighted imaging and ADC may be performed. COMPARISON: [facility], CT, CT ABDOMEN PELVIS WO CON, 11/30/2023, 21:17. FINDINGS: Image quality: Diagnostic Lower chest: Not well evaluated on MRI. No basal effusions Liver: Numerous cysts, many of which with septations, clustered particularly in the left lobe. There are no nodular enhancing components identified. Background [id number] hepatic steatosis. Gallbladder and biliary system: Gallbladder appears unremarkable. Mildly ectatic CBD measuring 7 mm, without obstructing mass or stone identified. Pancreas: There is [id number] focal atrophy of the pancreatic body, without discrete mass. Attention on follow-up. No ductal dilation. Spleen: Nonenlarged Adrenals: No discrete nodules Kidneys: No hydronephrosis. No solid renal mass. There are cysts. Vessels and lymph nodes: The main portal vein appears patent. No abdominal aortic aneurysm. A cyst at the hepatic hilum slightly compresses the IVC. There is no pathologic lymph nodes by size criteria. Bowel and peritoneum: No evidence of bowel obstruction or pathologic ascites Body wall: Small fat containing umbilical hernia Bones: Degenerative changes. Age-indeterminate, nonacute appearing height loss of some vertebral bodies not well evaluated on this abdominal MRI. IMPRESSION: No acute abdominal abnormality identified. There is no bowel obstruction, hydronephrosis, abscess, or other signs of significant active inflammation. Other incidental findings are described above. [id number] hepatic steatosis. Dictated by: Hubmerto Martinez M.D. on 12/18/2023 at 6:45 Approved by: Humberto Martinez M.D. on 12/18/2023 at 6:51
== END ==
LOC: MRI 08:20
PROVIDERS: Family Provider Student in an Organized Health Care Education/Training Program; PCP Family Medicine; Referring Provider Student in an Organized Health Care Education/Training Program; Visit Provider Student in an Organized Health Care Education/Training Program
DX: K76.0 Fatty (change of) liver, not elsewhere classified (principal); K76.89 Other specified diseases of liver; N28.1 Cyst of kidney, acquired; K42.9 Umbilical hernia without obstruction or gangrene; R10.9 Unspecified abdominal pain
CPT/HCPCS: 74183; A9579

== ENCOUNTER → 2023-12-29 18:53 | Outpatient (CLI) | payer MEDICARE, SELFPAY ==
--- NOTE | 2023-12-29 18:54 | DI.MRI.S_ITS ---
PROCEDURE: MR THORACIC SPINE W CON INDICATIONS: ABDOMINAL PAIN TECHNIQUE: After the administration of contrast, axial and sagittal T1 spin echo with fat saturation through the thoracic spine. COMPARISON: None. FINDINGS: Image quality: Excellent. Limited post-contrast only exam, as ordered. Alignment and curvature: There is normal bony alignment. Marrow: No compression deformities. No abnormal enhancement. Degenerative endplate changes are noted. Spinal cord: Visualized spinal cord is of normal signal and size, without abnormal enhancement. Paraspinous soft tissues: Right thyroid nodule measuring 1.6 cm. Miscellaneous: Central canal appears patent at all scanned levels. IMPRESSION: Limited post-contrast only exam, as ordered. No abnormal enhancement is identified. Right thyroid nodule measuring 1.6 cm, consider dedicated thyroid ultrasound for further evaluation if not previously performed. Dictated by: Jez Villa M.D. on 12/30/2023 at 11:16 Approved by: Jez Villa M.D. on 12/30/2023 at 11:22
== END ==
PROVIDERS: Family Provider Student in an Organized Health Care Education/Training Program; PCP Family Medicine; Referring Provider Family Medicine; Visit Provider Family Medicine
DX: R10.9 Unspecified abdominal pain (principal); E04.1 Nontoxic single thyroid nodule
CPT/HCPCS: 72147; A9579

== ENCOUNTER → 2024-01-17 08:33 | Outpatient (CLI) | payer MEDICARE, SELFPAY ==
--- NOTE | 2024-01-17 | DI.US.S_ITS ---
PROCEDURE: US THYROID INDICATIONS: NODULE ON RECENT MRI TECHNIQUE: Real-time scanning was performed of the thyroid gland, with image documentation. COMPARISON: None. FINDINGS: Thyroid: Right lobe measures 4.7 x 1.9 x 1.9 cm. Left lobe measures 3.9 x 1.4 x 1.4 cm. Isthmus is 0.28 cm thick. Echotexture is homogeneous. Nodule number: 1 Location: Mid pole right thyroid lobe Size: 3.0 x 1.8 x 1.8 cm. Composition: Solid Echogenicity: Isoechoic Shape: Wider than tall Margins: Smooth Echogenic foci: Macro calcifications Total points: 4 ACR TI-RADS category: Moderately suspicious. IMPRESSION: Moderately suspicious nodule in mid pole right thyroid lobe as described above, suggest fine-needle aspiration of this nodule for further workup. ACR TI-RADS definitions and recommendations: TI-RADS 1 (benign): 0 points. FNA not needed. TI-RADS 2 (not suspicious): 2 points. FNA not needed. TI-RADS 3 (mildly suspicious): 3 points. * FNA if 2.5 cm or larger, follow up if 1.5 cm or larger (at 1, 3, and 5 years). TI-RADS 4 (moderately suspicious): 4-6 points. * FNA if 1.5 cm or larger, follow up if 1 cm or larger (at 1, 2, 3, and 5 years). TI-RADS 5 (highly suspicious): 7 points or more. * FNA if 1 cm or larger, follow up if 0.5 cm or larger (every year for 5 years). Dictated by: Shiva Park M.D. on 01/17/2024 at 11:51 Approved by: Shiva Park M.D. on 01/17/2024 at 11:53
== END ==
PROVIDERS: Family Provider Student in an Organized Health Care Education/Training Program; PCP Family Medicine; Referring Provider Nurse Practitioner Family; Visit Provider Nurse Practitioner Family
DX: E04.1 Nontoxic single thyroid nodule (principal)
CPT/HCPCS: 76536

== ENCOUNTER → 2024-02-14 13:50 | Outpatient (CLI) | payer MEDICARE, SELFPAY ==
--- NOTE | 2024-02-14 | PATH_ITS ---
Note [facility] Accession Number: [id number] TESTS RESULT FLAG UNITS REF RANGE LAB Clinician Provided Cytology Information No. of containers..01 Other (Miscellaneous) No. of containers..02 Previously Prepared Cytology Slide Source: RIGHT THYROID NODULE DIAGNOSIS: RIGHT THYROID NODULE, FINE NEEDLE ASPIRATION. ADEQUATE FOR EVALUATION. FOLLICULAR GROUPS ARE PRESENT. FAVOR BENIGN FOLLICULAR (GOITEROUS) NODULE ([place] CATEGORY II), SEE COMMENT. COMMENT: MICROSCOPIC EXAMINATION REVEALS A MILDLY CELLULAR ASPIRATE, COMPOSED OF COLLOID AND FOLLICULAR GROUPS WITHOUT SIGNIFICANT CYTOLOGIC OR ARCHITECTURAL ATYPIA. THESE FINDINGS FAVOR A BENIGN FOLLICULAR (GOITEROUS) NODULE. CORRELATION WITH CLINICAL AND RADIOGRAPHIC FINDINGS IS RECOMMENDED. ACCORDING TO THE [place] REPORTING SYSTEM FOR THYROID CYTOPATHOLOGY, THE RISK OF MALIGNANCY IN THE CATEGORY BENIGN-CATEGORY II IS 0-3%; THEREFORE RECOMMEND CONTINUED ULTRASOUND SURVEILLANCE WITH REPEAT FNA IF THE NODULE SIGNIFICANTLY INCREASES IN SIZE. Pathologist ICD10: 01 E04.1 Signed out by: Zay Hubbard MD, Pathologist NPI- [id number] Performed by: Wojciech Munoz, Computer Systems Technology Instructor ([facility]) Gross description: 30 CC, PINK, CLEAR RECIEVED: IN CYTOLYT WITH 6 ALCOHOL FIXED AND 6 QUICK STAINED SLIDES ALSO 1 RNA VIAL WILL ON 05-11-2024.VO /VDU 02/15/2024 0502 Local FLAG LEGEND: L-Low Normal,H-High Normal,LL-Alert Low,HH-Alert High <-Panic Low,>-Panic High,A-Abnormal,AA-Critical Abnormal Performed at: 01 [address] [facility], [place] [address] Tree العراقي MD, Performed at: [address] [address], [place], [place] [id number] MD Tree العراقي MD Phone: [phone]
--- NOTE | 2024-02-14 13:54 | DI.US.S_ITS ---
PROCEDURE: US FINE NEEDLE ASPIRATION INDICATIONS: THYROID NODULE TECHNIQUE: The indications, alternatives, benefits, risks, and complications of the procedure were explained to the patient. Written informed consent was obtained and placed in the chart. The thyroid region was examined sonographically and a site was chosen for ultrasound guided percutaneous sampling. The skin was prepared and draped in the usual fashion, and anesthetized with 1% lidocaine infiltrated from the skin down to the thyroid gland. Multiple passes were then performed, with contents emptied into an appropriate pathology specimen container. A bandage was applied to the area of access at completion of the study. COMPARISON: None. FINDINGS: Location(s) of lesion(s) sampled: Right thyroid lobe [place]: 25 gauge hypodermic needles. Number of passes: 6 Medications: 1% lidocaine for local anaesthesia. Complications: None. IMPRESSION: Successful ultrasound-guided thyroid nodule fine needle aspiration, with cytology results pending. Please see chart below for management recommendations based on cytology results. [place] [facility] ReportingRecommendationsNon-diagnostic* Repeat US-guided FNA, with on-site cytology evaluation if possible. * Repeated non-diagnostic nodules without high suspicion US features: close observation vs surgical consult. * Consider surgery if nodule has high suspicion US features, grows >20% in 2 dimensions on followup, or patient has clinical risk factors for malignancy. Benign* If nodule has high suspicion US features: repeat US and FNA within 12 months. * If nodule has low to intermediate suspicion US features: repeat US at 12-24 months. If nodule grows (20% increase in at least 2 dimensions, with minimal increase of 2 mm or >50% change in volume), or development of new suspicious US features, then repeat FNA or continue followup. * If nodule has very low suspicion US features: followup US at >24 months. Atypia of undetermined significance, follicular lesion of undetermined significanceRepeat FNA, molecular testing, followup US, or surgical consult.Follicular neoplasm, suspicious for follicular neoplasmSurgical consult; also consider molecular testing. Suspicious for malignancySurgical consult.MalignantSurgical consult. Dictated by: Douglas Couch M.D. on 02/14/2024 at 16:27 Approved by: Douglas Couch M.D. on 02/14/2024 at 16:28
== END ==
PROVIDERS: Family Provider Student in an Organized Health Care Education/Training Program; PCP Family Medicine; Referring Provider Nurse Practitioner Family; Visit Provider Nurse Practitioner Family
DX: E04.1 Nontoxic single thyroid nodule (principal)
CPT/HCPCS: 10005

== ENCOUNTER → 2024-05-01 15:30 | Outpatient (CLI) | payer MEDICARE, SELFPAY ==
--- NOTE | 2024-05-01 15:31 | DI.US.S_ITS ---
PROCEDURE: US ABDOMEN LIMITED INDICATIONS: RLQ ABD PAIN TECHNIQUE: Real-time focused scanning was performed of the right lower quadrant abdomen. COMPARISON: [facility], CT, CT CHEST ABDOMEN PELVIS WITH CONTRAST, 03/14/2024, 17:25. FINDINGS: Normal loops of peristaltic small bowel are present in the right lower quadrant without evidence of a hernia or a dilated noncompressible appendix. IMPRESSION: No acute sonographic abnormality of the right lower quadrant abdomen. Dictated by: Garett Marcus M.D. on 05/04/2024 at 14:54 Approved by: Garett Marcus M.D. on 05/04/2024 at 14:57
== END ==
PROVIDERS: Family Provider Student in an Organized Health Care Education/Training Program; PCP Family Medicine; Referring Provider Nurse Practitioner Family; Visit Provider Nurse Practitioner Family
DX: R10.31 Right lower quadrant pain (principal)
CPT/HCPCS: 76705

== ENCOUNTER 2024-07-24 10:34 | Emergency (ER) | payer MEDICARE, SELFPAY ==
[2024-07-24 10:37] VITALS: BP 188/102; PULSE 71; RESP 16; TEMP 36.6; O2SAT 98; BMI 27.4
--- NOTE | 2024-07-24 10:44 | DI.RAD.S_ITS ---
PROCEDURE: XR WRIST LT MIN 3V INDICATIONS: fall/L wrist/ 1-2nd digit pain contusion. FOOSH inj TECHNIQUE: 4 views of the wrist were acquired. COMPARISON: None. FINDINGS: Bones: Remote fracture of the ulnar styloid. Significant wrist osteoarthritis. Soft tissues: No suspicious soft tissue calcifications. IMPRESSION: Remote fracture of the ulnar styloid. No acute bony abnormality. Dictated by: Wm Nava M.D. on 07/24/2024 at 11:20 Approved by: Wm Nava M.D. on 07/24/2024 at 11:21
--- NOTE | 2024-07-24 10:44 | DI.RAD.S_ITS ---
PROCEDURE: XR HAND LT MIN 3V INDICATIONS: fall/L wrist/ 1-2nd digit pain contusion. FOOSH inj TECHNIQUE: 3 views of the hand(s) acquired. COMPARISON: [facility], CR, XR HAND RT MIN 3V, 11/11/2021, 11:08. FINDINGS: Bones: Mildly displaced fracture at the neck of the 1st metacarpal, without intra-articular extension. Carpal bones are normally aligned. No suspicious bony lesions. Interphalangeal joint space narrowing with osteophytosis. 1st CMC joint space narrowing with associated osteophytosis and sclerosis. Questionable bony erosion the interphalangeal joints. Soft tissues: No suspicious soft tissue calcifications. IMPRESSION: Mildly displaced fracture of the 1st metacarpal neck, without articular extension. 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 Superimposed mild bony erosion may indicate erosive osteoarthritis versus psoriatic arthritis. Correlate with history. Dictated by: Wm Nava M.D. on 07/24/2024 at 11:15 Approved by: Wm Nava M.D. on 07/24/2024 at 11:19
--- NOTE | 2024-07-24 11:45 | ED.FALL ---
HPI - Fall <Wilman Campbell PA-C - Last Filed: 07/24/24 13:49> General Chief Complaint: Fall Stated Complaint: Fell today , Left hand pain No blood thinners Time Seen by Provider: 07/24/24 11:43 History of Present Illness HPI Narrative: 83-year-old female presents to the ED with some injury status post a mechanical fall sustained just prior to arrival. Patient had a mechanical trip and fall over a barrier that she had put up for her dog this morning. Patient struck her left cheek, right knee and braced her fall with her left hand. Patient complains of left hand pain, right knee pain and left cheek soreness. No loss of consciousness. Patient is not on blood thinners. Patient is able to bear weight and walk. No fever, chills, chest pain, shortness of breath, lightheadedness, dizziness, syncope. Related Data Home Medications Medication Instructions Recorded Confirmed atorvastatin 20 mg tablet 20 mg PO DAILY 09/01/18 06/01/24 cholecalciferol (vitamin D3) 25 25 mcg PO DAILY 05/08/20 06/01/24 mcg (1,000 unit) capsule multivitamin 1 tab PO DAILY 11/17/22 06/01/24 duloxetine 30 mg capsule,delayed 30 mg PO DAILY 06/01/24 06/01/24 release gabapentin 100 mg capsule 100 mg PO DAILY 06/01/24 06/01/24 Previous Rx's Medication Instructions Recorded ondansetron 4 mg disintegrating 4 mg PO Q8H PRN nausea and 07/24/24 tablet vomiting #10 tabs oxycodone-acetaminophen 5 mg-325 1 tab PO Q6H PRN pain #10 tabs 07/24/24 mg tablet (Percocet) Allergies Allergy/AdvReac Type Severity Reaction Status Date / Time codeine [CODEINE] Allergy Unknown vomit Verified 10/31/23 10:17 Sulfa (Sulfonamide Allergy Unknown rash Verified 10/31/23 10:17 Antibiotics) [SULFA (SULFONAMIDE ANTIBIOTICS)] Review of Systems <Wilman Campbell PA-C - Last Filed: 07/24/24 13:49> Constitutional Constitutional: Denies chills, Denies fatigue, Denies fever(s), Denies frequent falls, Denies lethargy and Denies weakness Eyes Eyes: Denies change in vision, Denies eye discharge, Denies irritation and Denies loss of vision ENT Ears, Nose, Mouth, and Throat: Denies change in voice, Denies dizziness, Reports facial pain, Denies neck pain, Denies sore throat and Denies throat swelling Cardiovascular Cardiovascular: Denies chest pain, Denies irregular heart rhythm, Denies lightheadedness, Denies palpitations, Denies dyspnea, Denies dyspnea on exertion and Denies orthopnea Respiratory Respiratory: Denies cough, Denies dyspnea, Denies dyspnea on exertion and Denies wheezing Gastrointestinal Gastrointestinal: Denies abdominal pain, Denies change in bowel habits, Denies diarrhea, Denies nausea and Denies vomiting Musculoskeletal Musculoskeletal: Denies neck pain and Denies numbness Comments: Left hand pain, right knee pain Integumentary/Breasts Skin/Breast: Denies pruritus, Denies erythema, Denies rash and Denies wounds Neurologic Neurologic: Denies behavioral changes, Denies confusion, Denies dizziness, Denies frequent falls, Denies loss of vision, Denies numbness and Denies weakness Psychiatric Psychiatric: Denies anxiety, Denies behavioral changes, Denies confusion, Denies depression, Denies homicidal ideation and Denies suicidal ideation Endocrine Endocrine: Denies fatigue, Denies flushing and Denies palpitations Hematologic/Lymphatic Hematologic/Lymphatic: Denies easy bruising Allergic/Immunologic Allergic/Immunologic: Denies urticaria, Denies throat swelling and Denies wheezing Patient History <Wilman Campbell PA-C - Last Filed: 07/24/24 13:49> Social History Smoking Status: Never smoker Smoking Status: Never smoker Exam <Wilman Campbell PA-C - Last Filed: 07/24/24 13:49> Narrative Exam Narrative: Const General:?cooperative, healthy appearing and comfortable [facility] Head:?normal to inspection Ears:?hearing grossly normal bilaterally Nose:?external nose normal Face and sinus:? Erythema, tenderness to palpation to the left maxillary region Mouth:?oral mucosae normal Throat:?posterior oropharynx normal Eyes General:?appearance normal, both eyes and all related structures Neck Neck:?normal visual inspection and no lymphadenopathy noted Resp Effort & Inspection:?normal respiratory effort Auscultation:?clear to auscultation bilaterally Cardio Rate:?regular rate Rhythm:?regular rhythm Musculoskeletal Swelling, tenderness to palpation, bruising to the left 1st metacarpal region. Full range of motion. Neurovascularly intact. There is some erythema, swelling, mild tenderness to palpation of the right patellar region. Full range of motion of the knee. Neuro General:?patient alert, patient awake and patient oriented x3 Initial Vital Signs Initial Vital Signs: Vital Signs Temperature 97.8 F 07/24/24 10:37 Pulse Rate 71 07/24/24 10:37 Respiratory Rate 16 07/24/24 10:37 Blood Pressure 188/102 H 07/24/24 10:37 Pulse Oximetry 98 07/24/24 10:37 Oxygen Delivery Method Room Air 07/24/24 10:37 <DO Mary Tariq Last Filed: 07/26/24 23:16> Initial Vital Signs Initial Vital Signs: Vital Signs Temperature 97.8 F 07/24/24 10:37 Pulse Rate 71 07/24/24 10:37 Respiratory Rate 16 07/24/24 10:37 Blood Pressure 188/102 H 07/24/24 10:37 Pulse Oximetry 98 07/24/24 10:37 Oxygen Delivery Method Room Air 07/24/24 10:37 Course <Wilman Campbell PA-C - Last Filed: 07/24/24 13:49> Orders Ordered: Discontinued Medications Hydrocodone Bitart/Acetaminophen (Hydrocodone/Acet 5/325 Tablet) 1 tab PO NOW ONE Stop: 07/24/24 12:03 Last Admin: 07/24/24 12:08 Dose: 1 tab Documented By: SARAH Ondansetron HCl (Ondansetron 4 Mg Odt) 4 mg SL NOW ONE Stop: 07/24/24 12:04 Last Admin: 07/24/24 12:08 Dose: 4 mg Documented By: SARAH Vital Signs Vital signs: Vital Signs - 8 hr 07/24/24 10:37 Temperature 97.8 F Pulse Rate 71 Respiratory Rate 16 Blood Pressure 188/102 H Pulse Oximetry 98 Oxygen Delivery Method Room Air <DO Mary Tariq Last Filed: 07/26/24 23:16> Orders Ordered: Discontinued Medications Hydrocodone Bitart/Acetaminophen (Hydrocodone/Acet 5/325 Tablet) 1 tab PO NOW ONE Stop: 07/24/24 12:03 Last Admin: 07/24/24 12:08 Dose: 1 tab Documented By: SARAH Ondansetron HCl (Ondansetron 4 Mg Odt) 4 mg SL NOW ONE Stop: 07/24/24 12:04 Last Admin: 07/24/24 12:08 Dose: 4 mg Documented By: SARAH Vital Signs Vital signs: Vital Signs - 8 hr 07/24/24 10:37 Temperature 97.8 F Pulse Rate 71 Respiratory Rate 16 Blood Pressure 188/102 H Pulse Oximetry 98 Oxygen Delivery Method Room Air MDM - Fall <Wilman Campbell PA-C - Last Filed: 07/24/24 13:49> MDM Narrative Medical decision making narrative: 83-year-old female presents to the ED with some injury status post a mechanical fall sustained just prior to arrival. Concern for fracture/dislocation versus intracranial injuries versus musculoskeletal sprain/strain versus other. Hand x-ray shows a mildly displaced fracture at the neck of the 1st metacarpal, without intra-articular extension. Wrist x-ray shows remote fracture of the ulnar styloid, but no acute bony abnormality. Face CT, CT head, x-ray of the knee without acute findings. Patient fitted with a thumb spica splint. Patient given Percocet for pain. Zofran given since opioids make patient nauseous. Patient and patient's daughter agree to follow-up with ortho as soon as possible. ED return precautions discussed with patient and patient's daughter. They verbalized understanding. Medical records reviewed: Yes Discharge Plan Departure Patient Disposition: Home Clinical Impression: Fracture, metacarpal, neck Qualifiers: Encounter type: initial encounter Metacarpal bone: first Fracture type: closed Fracture alignment: displaced Laterality: left Qualified Code(s): S62.252A - Displaced fracture of neck of first metacarpal bone, left hand, initial encounter for closed fracture Instructions: How to Prevent Falls Activity Restrictions/Additional Instructions: You were evaluated in the ED today for some injuries after a fall. The CT scans of the neck, face and x-ray of the knee were normal. The x-ray of the hand does show a mildly displaced fracture of the left thumb. You have been fitted with a splint for proper healing. You have been prescribed some pain medication for pain control over the next few days. You have also been prescribed Zofran in case you have nausea from the pain medication. Please follow-up with your orthopedic surgeon as soon as possible for further evaluation and treatment. Return to the ED if you have worsening symptoms, numbness, tingling, weakness. Prescriptions: New oxycodone-acetaminophen [Percocet] 5-325 mg tablet 1 tab PO Q6H PRN (Reason: pain) Qty: 10 0RF ondansetron 4 mg tablet,disintegrating 4 mg PO Q8H PRN (Reason: nausea and vomiting) Qty: 10 0RF No Action cholecalciferol (vitamin D3) 25 mcg (1,000 unit) capsule 25 mcg PO DAILY multivitamin Tablet 1 tab PO DAILY duloxetine 30 mg capsule,delayed release(DR/EC) 30 mg PO DAILY gabapentin 100 mg capsule 100 mg PO DAILY Rx Instructions: 100 mg po qam and 300 mg po qhs atorvastatin 20 mg tablet 20 mg PO DAILY Referrals: Juan Rojas MD [Primary Care Provider] - Stand Alone Forms: Patient Portal/API/Survey ED Sign-out <Maribel Tucker DO - Last Filed: 07/26/24 23:16> Cosign ED Attending Cospolyature Attestation: I was available for consultation.
--- NOTE | 2024-07-24 12:01 | DI.CT.S_ITS ---
PROCEDURE: CT FACIAL BONES WO CON INDICATIONS: Fall TECHNIQUE: Noncontrast 2.5 mm thick axial images acquired from the mandible through the frontal sinuses, with coronal and sagittal reformatting. For radiation dose reduction, the following was used: automated exposure control, adjustment of mA and/or kV according to patient size. COMPARISON: None. FINDINGS: Image quality: Excellent. Bones and teeth: Orbital newell are intact. Sinus newell show no fracture or deformity. Nasal bones and septum are intact. Visualized portions of the mandible demonstrate no fractures or subluxation. Zygomatic arches are intact. Pterygoid plates are intact. Visualized portions of the skull base and auditory canals are intact. Sinuses: Paranasal sinuses are aerated, without fluid levels, mucosal thickening, or mucoceles. Mastoid air cells are aerated. Soft tissues: No edema, masses, or fluid collections. No enlarged lymph nodes. No soft tissue lacerations or debris. Vascular: Visualized vascular structures appear normal in the absence of contrast. Bony vascular foramina and canals are intact. IMPRESSION: No displaced fracture. Dictated by: Wm Nava M.D. on 07/24/2024 at 13:05 Approved by: Wm Nava M.D. on 07/24/2024 at 13:08
--- NOTE | 2024-07-24 12:01 | DI.CT.S_ITS ---
PROCEDURE: CT HEAD/BRAIN WO CON INDICATIONS: fall TECHNIQUE: Noncontrast 4.5 mm thick angled axial sections acquired from the foramen magnum to the vertex, with coronal and sagittal reformats. For radiation dose reduction, the following was used: automated exposure control, adjustment of mA and/or kV according to patient size. COMPARISON: None. FINDINGS: Image quality: Diagnostic. CSF spaces: Basal cisterns are patent. No extra-axial fluid collections. The ventricles are symmetric in size and shape. Brain: No intracranial bleeds or masses. There is cerebral volume loss for age, with resultant ventricular and sulcal prominence. There are periventricular and deep white matter chronic small vessel ischemic changes. There is intracranial internal carotid artery atherosclerosis. Skull and face: Calvarium and visualized facial bones appear intact, without suspicious lesions. Sinuses: Visualized sinuses and mastoids are clear. IMPRESSION: No acute intracranial pathology. Dictated by: Wm Nava M.D. on 07/24/2024 at 13:03 Approved by: Wm Nava M.D. on 07/24/2024 at 13:05
--- NOTE | 2024-07-24 12:02 | DI.RAD.S_ITS ---
PROCEDURE: XR KNEE RT 3V INDICATIONS: fall TECHNIQUE: 3 views of the knee were acquired. COMPARISON: None. FINDINGS: Bones: No fractures or dislocations. No suspicious bony lesions. Soft tissues: No joint effusion. No suspicious soft tissue calcifications. IMPRESSION: No acute bony abnormality or significant effusion. Dictated by: Wm Nava M.D. on 07/24/2024 at 13:17 Approved by: Wm Nava M.D. on 07/24/2024 at 13:18
[2024-07-24] MEDS: ONDANSETRON 4 MG ODT SL (12:08)
[2024-07-24] MEDS: HYDROCODONE/ACET 5/325 TABLET 1 TAB PO (12:08)
[2024-07-24 13:52] VITALS: BP 166/77; PULSE 72; RESP 16; O2SAT 97
== END 2024-07-24 13:58 | disposition home or self-care (01) ==
PROVIDERS: Emergency Provider Student in an Organized Health Care Education/Training Program; Family Provider Student in an Organized Health Care Education/Training Program; PCP Family Medicine
DX: S62.252A Displaced fracture of neck of first metacarpal bone, left hand, initial encounter for closed fracture (principal); S52.612A Displaced fracture of left ulna styloid process, initial encounter for closed fracture; M25.561 Pain in right knee; R51.9 Headache, unspecified; W01.0XXA Fall on same level from slipping, tripping and stumbling without subsequent striking against object, initial encounter
CPT/HCPCS: 29125; 29130; 70450; 70486; 73110; 73130; 73562; 99283; 99284